=== PATIENT | male | born 1990 | race Caucasian/White ===

== ENCOUNTER → 2018-08-06 | Day surgery (SDC) | payer BC ==
[~2018-08-06] MED LIST: FENTANYL CITRATE/PF 100MCG/2 ML INJ ONE; LIDOCAINE HCL 2% LOCAL INJ 5 ML SDV VIAL INJ ONE; MIDAZOLAM HCL 2 MG/2 ML VIAL ONE; PANTOPRAZOLE 40 MG 10ML VIAL ONE; PROMETHAZINE HCL (IM) 25 MG/ML VIAL ONE; PROPOFOL IV EMULSION 10 MG/ML 20 ML VIAL ONE; TYLENOL WITH C1 EAC1 PO
[2018-08-06 17:06] LABS: WBC,FECAL (FECAL LACTOFERRIN) NEGATIVE (NEGATIVE)
[2018-08-06 17:30] VITALS: BP 131/96
[2018-08-07 11:27] LABS: C DIFFICILE TOXIN A&B AMP PROB NEGATIVE (NEGATIVE)
== END | disposition home or self-care (01) ==
LOC: OR 11:43
PROVIDERS: ATTEND Internal Medicine Gastroenterology
DX: K52.89 Other specified noninfective gastroenteritis and colitis (principal); K63.5 Polyp of colon; K29.50 Unspecified chronic gastritis without bleeding; K29.80 Duodenitis without bleeding; K21.9 Gastro-esophageal reflux disease without esophagitis; K20.9 Esophagitis, unspecified; K59.00 Constipation, unspecified; K64.8 Other hemorrhoids; R03.0 Elevated blood-pressure reading, without diagnosis of hypertension; M54.5 Low back pain; F41.9 Anxiety disorder, unspecified; Z72.0 Tobacco use; Z68.41 Body mass index [BMI] 40.0-44.9, adult
CPT/HCPCS: 36415; 43239; 45380; 45385; 83630; 83993; 85651; 86140; 86256; 86671; 87045; 87177; 87328; 87493; C9113; J2001; J2250; J2550; J2704

== ENCOUNTER → 2019-09-02 | Day surgery (SDC) | payer BC, OTHER ==
[~2019-09-02] MED LIST changes: +GLYCOPYRROLATE INJ 0.2 MG/ML VIAL ONE; +HYOSCYAMINE 0.125 MG TAB ONE; +KETAMINE HCL INJ 50 MG/ML 10 ML VIAL ONE; -PANTOPRAZOLE 40 MG 10ML VIAL ONE; -PROMETHAZINE HCL (IM) 25 MG/ML VIAL ONE
[2019-09-02 18:00] VITALS: BP 124/87
[2019-09-02 18:17] LABS: WBC,FECAL (FECAL LACTOFERRIN) NEGATIVE (NEGATIVE)
--- NOTE | 2019-09-02 18:50 | Operative Report ---
DATE OF PROCEDURE: 09/02/2019 SURGEON: Erick Fuller MD PROCEDURE: Colonoscopy with biopsies. INDICATIONS FOR COLONOSCOPY: Rectal bleeding. MEDICATIONS: The patient was done under MAC, please see anesthesiologist's note. PROCEDURE IN DETAIL: With the patient in left lateral decubitus position, the flexible fiberoptic Olympus colonoscope was inserted into the rectum with ease and advanced all the way to the cecum. It was then withdrawn slowly, mucosa overlying the cecum appeared to be within normal limits. The ileocecal valve was intubated and the scope was advanced into the terminal ileum. Biopsies were obtained. The scope was then withdrawn back into the colon. It was then withdrawn slowly, mucosa overlying the ascending and the transverse as well as the descending colon appeared to be within normal limits. Some patchy and mild inflammatory changes were noted in the sigmoid and rectum. The scope was then retroflexed into the distal rectum and moderate-sized internal hemorrhoids were noted, none of which was actively bleeding. The scope was then straightened out after securing an adequate stool specimen. The patient tolerated the procedure well. IMPRESSION: 1. Proctosigmoiditis, mild. 2. Moderate-sized internal hemorrhoids, none actively bleeding. PLAN: 1. Follow up histology. 2. Initiate VSL #3 one p.o. b.i.d. and Proctosol HC 25 mg suppository b.i.d. x10 days and p.r.n. Erick Fuller MD [facility] [place][id number] cc: Husam Joiner DO
[2019-09-03 11:58] LABS: C DIFFICILE TOXIN A&B AMP PROB **POSITIVE** (NEGATIVE)
== END | disposition home or self-care (01) ==
LOC: OR 12:40
PROVIDERS: ATTEND Internal Medicine Gastroenterology
DX: K62.89 Other specified diseases of anus and rectum (principal); K21.9 Gastro-esophageal reflux disease without esophagitis; K51.511 Left sided colitis with rectal bleeding; K63.89 Other specified diseases of intestine; K64.8 Other hemorrhoids; R03.0 Elevated blood-pressure reading, without diagnosis of hypertension; Z72.0 Tobacco use; I10 Essential (primary) hypertension; Z11.59 Encounter for screening for other viral diseases
CPT/HCPCS: 45380; 83630; 83993; 87045; 87177; 87328; 87493; 87635; J2001; J2250; J2704; J3010